=== PATIENT | male | born 1965 | race Caucasian/White ===

== ENCOUNTER 2019-12-16 12:12 | Emergency (ER) | payer OTHER ==
--- NOTE | 2019-12-16 12:58 | EDM.PDOC ---
ED HPI GENERAL MEDICAL PROBLEM - General Chief Complaint: Laceration Stated Complaint: FISH HOOK Time Seen by Provider: 12/16/19 12:20 Source of Information: Reports: Patient History Limitations: Reports: No Limitations - History of Present Illness INITIAL COMMENTS - FREE TEXT/NARRATIVE: Patient was fishing and, when de-hooking fish, hook was embedded into right thigh. PHMx significant for diabetes. Patient tried to remove hook himself, but was unsuccessful. Review of Systems - Review of Systems Review Of Systems: Comprehensive ROS is negative, except as noted in HPI. ED EXAM, GENERAL - Physical Exam Exam: See Below Free Text/Narrative:: 3-pronged fish hook embedded into right thigh. No swelling and no bleeding. ED TRAUMA EXTREMITY PROCEDURES - Foreign Body Removal Indication:: Embedded fish hook to right thigh Consent Obtained: Patient Foreign Body Other Location Comment:: 3-pronged fish hook Anesthesia Type: Local Complications:: No Comments:: 3 cc of 1% lidocaine without epi used to numb area. Pushed fish hook through and cut lily off with wire cutters. Area cleansed with chlorhexidine and saline. Course - Vital Signs Last Recorded V/S: Last Vital Signs Temp 36.9 C 12/16/19 12:32 Pulse 91 12/16/19 12:32 Resp 16 12/16/19 12:32 BP 128/68 12/16/19 12:32 Pulse Ox 97 12/16/19 12:32 Departure - Departure Time of Disposition: 13:00 Disposition: Home, Self-Care 01 Clinical Impression: Fish hook injury of right lower leg Qualifiers: Encounter type: initial encounter Qualified Code(s): S89.91XA - Unspecified injury of right lower leg, initial encounter - Discharge Information *PRESCRIPTION DRUG MONITORING PROGRAM REVIEWED*: Not Applicable *COPY OF PRESCRIPTION DRUG MONITORING REPORT IN PATIENT SRIRAM: Not Applicable Instructions: Puncture Wound, [id number] Referrals: PCP,None [Primary Care Provider] - Forms: ED Department Discharge Care Plan Goals: Take medications as directed. Watch for signs of infection. Return to hospital w ith any questions or concerns. Sepsis Event Note (ED) - Evaluation Sepsis Screening Result: No Definite Risk - Focused Exam Vital Signs: Vital Signs Temp Pulse Resp BP Pulse Ox 12/16/19 12:32 36.9 C 91 16 128/68 97 - Assessment/Plan Plan: Keep wound clean and dry. No soaking or ointments. Take Bactrim DS BID x 5 days. Return for swelling, redness, purulent drainage, pain, or fever >102.
[2019-12-19] MEDS ORDERED: Lidocaine 1% 30 ML SDV INJECT ONE (09:56)
== END 2019-12-16 12:59 | disposition home or self-care (01) ==
LOC: LB.ED 12:12
DX: S70.351A Superficial foreign body, right thigh, initial encounter (principal); E11.9 Type 2 diabetes mellitus without complications; W45.8XXA Other foreign body or object entering through skin, initial encounter
CPT/HCPCS: 99283